=== PATIENT | female | born 1995 | race Native Hawaiian/Other Pacific Islander ===

== ENCOUNTER 2017-04-27 23:09 | Emergency (ER) | payer MEDICAID ==
[2017-04-28] MEDS ORDERED: METOCLOPRAMIDE HCL INJ/PF 10 MG/2 ML SDV IV ONE (01:18)
[2017-04-28] MEDS ORDERED: NORMAL SALINE 1000 ML 1,000 ML IV ONE (01:18)
--- NOTE | 2017-04-28 01:21 | ER Document Report ---
ED General - General Chief Complaint: Nausea/Vomiting Stated Complaint: FEVER Time Seen by Provider: 04/28/17 01:10 Notes: Patient is a 21-year-old female presents with complaint of some cramping abdominal pain with some vomiting. No diarrhea. She is 10 weeks . She has had an ultrasound confirming intrauterine . She denies any complications with her thus far. She is followed by [facility]. She also has had some dysuria. No abnormal vaginal discharge. No vaginal bleeding. She has had subjective fevers but has not checked her temp. Symptoms have been ongoing for 3 days. No other complaints at this time. TRAVEL OUTSIDE OF THE [place] IN LAST 30 DAYS: No - Related Data Allergies/Adverse Reactions: No Known Allergies Allergy (Verified 04/28/17 00:41) Past Medical History - Social History Smoking Status: Never Smoker Chew tobacco use (# tins/day): No Frequency of alcohol use: None Drug Abuse: None Family History: Reviewed & Not Pertinent Patient has suicidal ideation: No Patient has homicidal ideation: No Renal/ Medical History: Denies: Hx Peritoneal Dialysis - Immunizations Hx Diphtheria, Pertussis, Tetanus Vaccination: Yes Review of Systems - Review of Systems Notes: My Normal Review Basic REVIEW OF SYSTEMS: CONSTITUTIONAL : Denies fever, chills, or sweats. Denies recent illness. EENT: Denies eye, ear, throat, or mouth pain or symptoms. Denies nasal or sinus congestion. RESPIRATORY: Denies cough, cold, or chest congestion. Denies shortness of breath, difficulty breathing, or wheezing. GASTROINTESTINAL: Lower abdominal cramping. Some vomiting. GENITOURINARY: Some dysuria FEMALE GENITOURINARY: Denies vaginal bleeding, abnormal or irregular periods. LMP: 10 Weeks MUSCULOSKELETAL: Denies neck or back pain or joint pain or swelling. SKIN: Denies rash or skin lesions. NEUROLOGICAL: Denies altered mental status or loss of consciousness. Denies headache. Denies weakness or paralysis or loss of use of either side. Denies problems with gait or speech. Denies sensory or motor loss. ALL OTHER SYSTEMS REVIEWED AND NEGATIVE. Physical Exam - Vital signs Vitals: Temp Pulse Resp BP Pulse Ox 98.4 F 99 18 141/95 H 100 04/27/17 23:15 04/27/17 23:15 04/27/17 23:15 04/27/17 23:15 02/12/18 23:15 - Notes Notes: General Appearance: Well nourished, alert, cooperative, no acute distress, no obvious discomfort. Well-appearing. Vitals: reviewed, See vital signs table. Head: no swelling or tenderness to the head Eyes: PERRL, EOMI, Conjuctiva clear Mouth: No decreasd moisture Lungs: No wheezing, No rales, No rhonci, No accessory muscle use, good air exchange bilaterally. Heart: Normal rate, Regular rythm, No murmur, no rub Abdomen: Normal BS, soft, No rigidity, No reproducible abdominal tenderness to palpation, No guarding, no rebound, Extremities: strength 5/5 in all extremities, good pulses in all extremities, no swelling or tenderness in the extremities, no edema. Skin: warm, dry, appropriate color, no rash Neuro: speech clear, oriented x 3, normal affect, responds appropriately to questions. Course - Vital Signs Vital signs: Temp Pulse Resp BP Pulse Ox 98.4 F 99 18 141/95 H 100 04/27/17 23:15 04/27/17 23:15 04/27/17 23:15 04/27/17 23:15 04/27/17 23:15 - Laboratory Result Diagrams: 04/28/17 01:45 04/28/17 01:45 Laboratory results interpreted by me: 04/28/17 04/28/17 01:45 01:45 WBC 13.5 H RDW 14.3 H Absolute Neutrophils 9.4 H Urine Nitrite POSITIVE H Ur Leukocyte Esterase LARGE H Discharge - Discharge Clinical Impression: UTI (urinary tract infection) Qualifiers: Urinary tract infection type: site unspecified Hematuria presence: without hematuria Qualified Code(s): N39.0 - Urinary tract infection, site not specified Qualifiers: Weeks of gestation: unspecified Qualified Code(s): Z34.90 - Encounter for supervision of normal , unspecified, unspecified trimester Vomiting Qualifiers: Vomiting type: unspecified Vomiting Intractability: unspecified Nausea presence : unspecified Qualified Code(s): R11.10 - Vomiting, unspecified Condition: Good Disposition: HOME, SELF-CARE Additional Instructions: Please take the antibiotics as prescribed. please take the Reglan as needed for vomiting. Please follow up with your OB doctor in 3-4 days for reevaluation. Please return to the ER immediately if you develop back pain, fevers, intractable vomiting, or feel unwell. Prescriptions: Cephalexin Monohydrate [Keflex 500 mg Capsule] 500 mg PO BID #14 capsule Metoclopramide HCl [Reglan 10 mg Tablet] 1 tab PO ASDIR PRN #25 tablet PRN Reason: Referrals: FERNANDO OLIVERA, PAVANC [Primary Care Provider] - 05/01/17
[2017-04-28 01:56] LABS: ABSOLUTE BASOPHILS # (AUTO) 0.1 10^3/uL (0.0-0.2); ABSOLUTE EOSINOPHILS # (AUTO) 0.2 10^3/uL (0.0-0.6); ABSOLUTE MONOCYTES (AUTO) 0.9 10^3/uL (0.1-1.4); ABSOLUTE NEUT (AUTO) 9.4 10^3/uL (1.7-8.2); BASOPHILS % (AUTO) 0.4 % (0-2); EOSINOPHILS % (AUTO) 1.2 % (0-6); HEMATOCRIT 40.1 % (36.0-47.0); HEMOGLOBIN 13.2 g/dL (12.0-15.5); MEAN CORPUSCULAR HEMOGLOBIN 27.3 pg (27.0-33.4); MEAN CORPUSCULAR VOLUME 83 fl (80-97); MONOCYTES % (AUTO) 6.6 % (3-13); PLATELET COUNT 319 10^3/uL (150-450); RED BLOOD COUNT 4.85 10^6/uL (3.72-5.28); RED CELL DISTRIBUTION WIDTH 14.3 % (11.5-14.0); SEGMENTED NEUTROPHILS % (AUTO) 69.8 % (42-78); TOTAL CELLS COUNTED % (AUTO) 100 %; WHITE BLOOD COUNT 13.5 10^3/uL (4.0-10.5)
[2017-04-28 02:03] LABS: APPEARANCE,URINE SLIGHTLY-CLOUDY; BILIRUBIN,URINE NEGATIVE (NEGATIVE); COLOR,URINE YELLOW; GLUCOSE, URINE NEGATIVE (NEGATIVE); KETONES,URINE NEGATIVE (NEGATIVE); LEUKOCYTE ESTERASE,URINE LARGE (NEGATIVE); NITRITE,URINE POSITIVE (NEGATIVE); PROTEIN,URINE NEGATIVE (NEGATIVE); URINE SPECIFIC GRAVITY 1.006; UROBILINOGEN,URINE NEGATIVE mg/dL (<2.0)
[2017-04-28 02:12] LABS: ANION GAP 10 (5-19); BLOOD UREA NITROGEN 13 mg/dL (7-20); CALCIUM 9.6 mg/dL (8.4-10.2); CARBON DIOXIDE 24 mmol/L (22-30); CHLORIDE 103 mmol/L (98-107); GLUCOSE 82 mg/dL (75-110); POTASSIUM 4.1 mmol/L (3.6-5.0); SODIUM 137.3 mmol/L (137-145)
[2017-04-28] MEDS ORDERED: CEFTRIAXONE INJ 1000 MG VIAL IV ONE (02:41)
[2017-04-28] MEDS ORDERED: LIDOCAINE 1% INJ-PF (10 MG/ML) 30 ML SDV ONE (03:06)
[2017-04-28 03:34] VITALS: BP 114/75
== END 2017-04-28 03:33 | disposition home or self-care (01) ==
LOC: ER 23:09
DX: O23.40 Unspecified infection of urinary tract in pregnancy, unspecified trimester (principal); R11.2 Nausea with vomiting, unspecified; R50.9 Fever, unspecified; R10.9 Unspecified abdominal pain; R30.0 Dysuria; Z3A.00 Weeks of gestation of pregnancy not specified
CPT/HCPCS: 99283; 96361; 96374; 96375; 36415; 87086; 83735; 85025; 87088; 80048; 81001; 87186; J2765; J0696; J7030

== ENCOUNTER 2017-09-23 14:56 | Outpatient (CLI) | payer MEDICAID ==
[2017-09-23 16:21] LABS: APPEARANCE,URINE SLIGHTLY-CLOUDY; BILIRUBIN,URINE NEGATIVE (NEGATIVE); COLOR,URINE YELLOW; GLUCOSE, URINE NEGATIVE (NEGATIVE); KETONES,URINE NEGATIVE (NEGATIVE); LEUKOCYTE ESTERASE,URINE MODERATE (NEGATIVE); NITRITE,URINE NEGATIVE (NEGATIVE); PROTEIN,URINE NEGATIVE (NEGATIVE); URINE SPECIFIC GRAVITY 1.008; UROBILINOGEN,URINE NEGATIVE mg/dL (<2.0)
[2017-09-23 16:34] LABS: URINE AMPHETAMINES SCREEN NEGATIVE; URINE BARBITURATES SCREEN NEGATIVE; URINE BENZODIAZEPINES SCREEN NEGATIVE; URINE COCAINE SCREEN NEGATIVE; URINE MARIJUANA (THC) SCREEN NEGATIVE; URINE METHADONE SCREEN NEGATIVE; URINE PHENCYCLIDINE SCREEN NEGATIVE
[2017-09-23 16:59] LABS: ABSOLUTE BASOPHILS # (AUTO) 0.1 10^3/uL (0.0-0.2); ABSOLUTE EOSINOPHILS # (AUTO) 0.1 10^3/uL (0.0-0.6); ABSOLUTE LYMPHOCYTES (AUTO) 1.9 10^3/uL (0.5-4.7); ABSOLUTE MONOCYTES (AUTO) 0.8 10^3/uL (0.1-1.4); ABSOLUTE NEUT (AUTO) 9.5 10^3/uL (1.7-8.2); BASOPHILS % (AUTO) 0.7 % (0-2); EOSINOPHILS % (AUTO) 0.9 % (0-6); HEMATOCRIT 35.3 % (36.0-47.0); HEMOGLOBIN 11.3 g/dL (12.0-15.5); LYMPHOCYTES % (AUTO) 15.6 % (13-45); MEAN CORPUSCULAR HEMOGLOBIN 25.4 pg (27.0-33.4); MEAN CORPUSCULAR HGB CONC 32.1 g/dL (32.0-36.0); MEAN CORPUSCULAR VOLUME 79 fl (80-97); MONOCYTES % (AUTO) 6.1 % (3-13); PLATELET COUNT 179 10^3/uL (150-450); RED BLOOD COUNT 4.45 10^6/uL (3.72-5.28); RED CELL DISTRIBUTION WIDTH 13.1 % (11.5-14.0); SEGMENTED NEUTROPHILS % (AUTO) 76.7 % (42-78); TOTAL CELLS COUNTED % (AUTO) 100 %; WHITE BLOOD COUNT 12.4 10^3/uL (4.0-10.5)
[2017-09-23] MEDS ORDERED: LIDOCAINE 1% INJ-PF (10 MG/ML) 30 ML SDV INJ ONE (17:16)
[2017-09-23] MEDS ORDERED: CEFTRIAXONE INJ 1000 MG VIAL IM ONE (17:16)
[2017-09-23] MEDS ORDERED: CEFTRIAXONE INJ 1000 MG VIAL ONE (17:19)
[2017-09-23] MEDS ORDERED: LIDOCAINE 1% INJ-PF (10 MG/ML) 30 ML SDV ONE (17:19)
== END 2017-09-23 17:31 | disposition home or self-care (01) ==
LOC: LC 14:56
PROVIDERS: ATTEND Obstetrics & Gynecology
PROC: 4A1HXCZ Monitoring of Products of Conception, Cardiac Rate, External Approach (ICD-10-PCS; principal; 2017-09-23)
DX: O47.03 False labor before 37 completed weeks of gestation, third trimester (principal); Z3A.31 31 weeks gestation of pregnancy
CPT/HCPCS: 59899; 36415; 87086; 85025; 81001; 80307; J3490; J0696

== ENCOUNTER 2017-10-04 06:23 | Outpatient (CLI) | payer MEDICAID ==
[2017-10-04 07:12] LABS: APPEARANCE,URINE CLEAR; BILIRUBIN,URINE NEGATIVE (NEGATIVE); COLOR,URINE LIGHT YELLOW; GLUCOSE, URINE NEGATIVE (NEGATIVE)
[2017-10-04 07:13] LABS: KETONES,URINE 25 mg/dL (NEGATIVE); LEUKOCYTE ESTERASE,URINE TRACE (NEGATIVE); NITRITE,URINE NEGATIVE (NEGATIVE); PROTEIN,URINE 30 mg/dL (NEGATIVE); URINE SPECIFIC GRAVITY 1.016; UROBILINOGEN,URINE NEGATIVE mg/dL (<2.0)
[2017-10-04 07:38] LABS: URINE AMPHETAMINES SCREEN NEGATIVE; URINE BARBITURATES SCREEN NEGATIVE; URINE BENZODIAZEPINES SCREEN NEGATIVE; URINE COCAINE SCREEN NEGATIVE; URINE MARIJUANA (THC) SCREEN NEGATIVE; URINE METHADONE SCREEN NEGATIVE; URINE PHENCYCLIDINE SCREEN NEGATIVE
[2017-10-04] MEDS ORDERED: RINGERS SOLUTION,LACTATED 1,000 ML IV PRN (08:39)
== END 2017-10-04 11:22 | disposition home or self-care (01) ==
LOC: LC 06:23
PROVIDERS: ATTEND Obstetrics & Gynecology
PROC: 4A1HXCZ Monitoring of Products of Conception, Cardiac Rate, External Approach (ICD-10-PCS; principal; 2017-10-04)
DX: O36.8130 Decreased fetal movements, third trimester, not applicable or unspecified (principal); O99.613 Diseases of the digestive system complicating pregnancy, third trimester; K52.9 Noninfective gastroenteritis and colitis, unspecified; O09.33 Supervision of pregnancy with insufficient antenatal care, third trimester; Z3A.33 33 weeks gestation of pregnancy
CPT/HCPCS: 59025; 80307; 81001

== ENCOUNTER 2017-11-05 15:13 | Outpatient (CLI) | payer MEDICAID ==
--- NOTE | 2017-11-05 15:23 | Non Stress Test Report ---
Non Stress Test Datetime Report Generated by CPN: 11/05/2017 15:23 DEMOGRAPHIC Test Number: 1 EGA NST: 33.3 INDICATION Indication for Study: Decreased Movement; Ordered by Provider; Other Indication for Study (NST) Other: s/p fall MONITORING Monitor Explained: Monitor Explained; Test Explained; Patient Verbalized Understanding Monitor Explained: Monitor Explained; Test Explained; Patient Verbalized Understanding Time on Monitor: 10/04/2017 10:28 Time off Monitor: 10/04/2017 11:11 NST Duration: 43 NST INTERVENTIONS NST Interventions: PO Hydration; Reposition Patient NST Interventions: None Physician Notified NST: Richard BABY A: [id number] BABY A Movement : Present Contraction Frequency : Irreg FHR Baseline : 140 Accelerations : 15X15 Decelerations : None Variability : Moderate 6-25bpm NST Review: Meets Criteria for Reactive NST NST Review and Verified By : Shaina CRAVEN Results: Reactive NST REPORT Report Trigger: Send Report
[2017-11-05 15:51] LABS: APPEARANCE,URINE CLEAR; BILIRUBIN,URINE NEGATIVE (NEGATIVE); COLOR,URINE YELLOW; GLUCOSE, URINE NEGATIVE (NEGATIVE); KETONES,URINE NEGATIVE (NEGATIVE); LEUKOCYTE ESTERASE,URINE NEGATIVE (NEGATIVE); NITRITE,URINE NEGATIVE (NEGATIVE); PROTEIN,URINE NEGATIVE (NEGATIVE); URINE SPECIFIC GRAVITY 1.014; UROBILINOGEN,URINE NEGATIVE mg/dL (<2.0)
[2017-11-05 16:09] LABS: URINE AMPHETAMINES SCREEN NEGATIVE; URINE BARBITURATES SCREEN NEGATIVE; URINE BENZODIAZEPINES SCREEN NEGATIVE; URINE COCAINE SCREEN NEGATIVE; URINE MARIJUANA (THC) SCREEN NEGATIVE; URINE METHADONE SCREEN NEGATIVE; URINE PHENCYCLIDINE SCREEN NEGATIVE
[2017-11-05 17:14] LABS: BACTERIA (WET MOUNT) 4+ BACTERIA SEEN; EPITHELIALS (WET MOUNT) 3+ EPITHELIALS SEEN; T.VAGINALIS (WET MOUNT) NO TRICHOMONAS SEEN; WBCS (WET MOUNT) 1+ WBCS SEEN; YEAST (WET MOUNT) NO YEAST SEEN
== END 2017-11-05 17:44 | disposition home or self-care (01) ==
LOC: LC 15:13
PROVIDERS: ATTEND Obstetrics & Gynecology
PROC: 4A1HXCZ Monitoring of Products of Conception, Cardiac Rate, External Approach (ICD-10-PCS; principal; 2017-11-05)
DX: O36.8130 Decreased fetal movements, third trimester, not applicable or unspecified (principal); Z3A.38 38 weeks gestation of pregnancy
CPT/HCPCS: 59025; 80307; 81005; 84112; 87210

== ENCOUNTER 2017-11-06 22:43 | Inpatient (IN) | payer MEDICAID ==
[2017-11-06 23:12] LABS: APPEARANCE,URINE CLEAR; BILIRUBIN,URINE NEGATIVE (NEGATIVE); COLOR,URINE YELLOW; GLUCOSE, URINE NEGATIVE (NEGATIVE); KETONES,URINE NEGATIVE (NEGATIVE); LEUKOCYTE ESTERASE,URINE NEGATIVE (NEGATIVE); NITRITE,URINE NEGATIVE (NEGATIVE); PROTEIN,URINE NEGATIVE (NEGATIVE); URINE SPECIFIC GRAVITY 1.009; UROBILINOGEN,URINE NEGATIVE mg/dL (<2.0)
[2017-11-06] MEDS ORDERED: MISOPROSTOL 0.2 MG TABLET ONE (23:14)
[2017-11-06] MEDS ORDERED: LIDOCAINE 1% INJ-PF (10 MG/ML) 30 ML SDV ONE (23:15)
[2017-11-06] MEDS ORDERED: OXYTOCIN/NORMAL SALINE 20 UNIT/1,000 ML RTUINJ ONE (23:15)
[2017-11-06 23:28] LABS: URINE AMPHETAMINES SCREEN NEGATIVE; URINE COCAINE SCREEN NEGATIVE; URINE MARIJUANA (THC) SCREEN NEGATIVE; URINE METHADONE SCREEN NEGATIVE; URINE PHENCYCLIDINE SCREEN NEGATIVE
[2017-11-06 23:40] LABS: ABSOLUTE BASOPHILS # (AUTO) 0.1 10^3/uL (0.0-0.2); ABSOLUTE EOSINOPHILS # (AUTO) 0.1 10^3/uL (0.0-0.6); ABSOLUTE LYMPHOCYTES (AUTO) 3.1 10^3/uL (0.5-4.7); ABSOLUTE MONOCYTES (AUTO) 0.7 10^3/uL (0.1-1.4); ABSOLUTE NEUT (AUTO) 9.4 10^3/uL (1.7-8.2); BASOPHILS % (AUTO) 0.6 % (0-2); EOSINOPHILS % (AUTO) 0.7 % (0-6); HEMATOCRIT 35.4 % (36.0-47.0); HEMOGLOBIN 11.3 g/dL (12.0-15.5); LYMPHOCYTES % (AUTO) 23.1 % (13-45); MEAN CORPUSCULAR HGB CONC 31.9 g/dL (32.0-36.0); MEAN CORPUSCULAR VOLUME 78 fl (80-97); MONOCYTES % (AUTO) 5.3 % (3-13); PLATELET COUNT 205 10^3/uL (150-450); RED BLOOD COUNT 4.52 10^6/uL (3.72-5.28); SEGMENTED NEUTROPHILS % (AUTO) 70.3 % (42-78); TOTAL CELLS COUNTED % (AUTO) 100 %; WHITE BLOOD COUNT 13.3 10^3/uL (4.0-10.5)
[2017-11-06 23:42] LABS: URINE BENZODIAZEPINES SCREEN NEGATIVE
--- NOTE | 2017-11-06 23:47 | Admission Physical ---
Datetime Report Generated by CPN: 11/06/2017 23:47 CURRENT ADMISSION Chief Complaint: Uterine Contractions Indication for Induction: Not Applicable Admit Impression : Term, Intrauterine Admit Plan: Initiate Labor Protocol ALLERGIES Medication Allergies: No Known Allergies (11/05/2017) Latex: No Latex Allergies OBSTETRICAL HISTORY EDC: 11/19/2017 00:00 : 1 Para: 0 Gestational Diabetes: No Rh Sensitization: No Incompetent Cervix: No JOSE E: No Infertility: No ART Treatment: No Uterine Anomaly: No IUGR: No Hx Previous C/S: No Macrosomia: No Hx Loss/Stillborn: No PIH: No Hx : No Placenta Previa/Abruption: No Depression/PP Depression: No PTL/PROM: No Post Hemorrhage: No Obstetrical History Comments: g1 - current - frequent utis SEE RECORDS Alcohol: No Marijuana : No Cocaine: No Other Illicit Drugs: No Cigarettes: Never Smoker. 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 Heart Disease: No Hosp/Surgery: No Autoimmune Disorder: No Anesthetic Complications: No Kidney Disease: No Abnormal Pap Smear: No Neuro/Epilepsy: No Psychiatric Disorders: No Other Medical Diseases: No Hepatitis/Liver Disease: No Significant Family History: No Varicosities/Phlebitis: No Trauma/Violence : No Thyroid Dysfunction: No INFECTIOUS HISTORY Gonorrhea: No Genital Herpes: No Chlamydia: No Tuberculosis: No Syphilis: No Hepatitis: No HIV/AIDS Exposure: No Rash or Viral Illness: No HPV: No PHYSICAL EXAM General: Normal HEENT: Normal Neurologic: Normal Thyroid: Normal Heart: Normal Lungs: Normal Breast: Deferred Back: Normal Abdomen: Normal Genitourinary Exam: Normal Extremities: Normal DTRs: Normal Pelvic Type: Adequate FETUS A EGA: 38.1 PLANS FOR LABOR AND DELIVERY Labor and Delivery: None Pain Management: Natural Feeding Preference: Breast Benefit of Breast Feed Discussed: Yes Circumcision: Yes INFORMED CONSENT Signature: with User ID: [email or web address]
[2017-11-07] MEDS ORDERED: DIPH/PERTUSS(ACELL)/TETANUS VAC/PF 0.5 ML SYR (>=10YO) IM PRN (00:52)
[2017-11-07] MEDS ORDERED: PROMETHAZINE HCL 25 MG SUPP.RECT PR PRN (00:52)
[2017-11-07] MEDS ORDERED: ACETAMINOPHEN WITH CODEINE #3 TABLET PO PRN (00:52)
[2017-11-07] MEDS ORDERED: PROMETHAZINE HCL 25 MG TABLET PO PRN (00:52)
[2017-11-07] MEDS ORDERED: PROMETHAZINE HCL INJ 25 MG/1 ML VIAL IV PRN (00:52)
[2017-11-07] MEDS ORDERED: MAGNESIUM HYDROXIDE SUSP 30 ML UDCUP PO PRN (00:52)
[2017-11-07] MEDS ORDERED: DIPHENHYDRAMINE HCL 25 MG CAPSULE PO PRN (00:52)
[2017-11-07] MEDS ORDERED: MEASLES,MUMPS&RUBELLA VACC/PF 0.5 ML VIAL SUBCUT PRN (00:52)
[2017-11-07] MEDS ORDERED: GLYCERIN/WITCH HAZEL LEAF 1 EACH MED..PAD TP PRN (00:52)
[2017-11-07] MEDS ORDERED: ACETAMINOPHEN 650 MG SUPP.RECT PR PRN (00:52)
[2017-11-07] MEDS ORDERED: PSEUDOEPHEDRINE HCL 30 MG TABLET PO PRN (00:52)
[2017-11-07] MEDS ORDERED: BENZOCAINE/MENTHOL AEROSOL SPRAY 56 ML TOP PRN (00:52)
[2017-11-07] MEDS ORDERED: NA PHOS,M-B/NA PHOS,DI-BA (ADULT) 133 ML ENEMA PR PRN (00:52)
[2017-11-07] MEDS ORDERED: ZOLPIDEM TARTRATE 5 MG TABLET PO PRN (00:52)
[2017-11-07] MEDS ORDERED: DIBUCAINE 1% OINTMENT 28 GM TP PRN (00:52)
[2017-11-07] MEDS ORDERED: OXYTOCIN/NORMAL SALINE 20 UNIT/1,000 ML RTUINJ IV PRN (00:52)
--- NOTE | 2017-11-07 00:54 | PDOC DELIVERY SUMMARY ---
Delivery Summary - Maternal Ruptured Membranes: SROM Fluids: Clear, Meconium Stained - Delivery Presentation: Vertex Uterine Contraction Monitoring: External Support Person Present: Yes Placenta: Within Normal Limits Nuchal Cord: No
[2017-11-07 01:01] LABS: URINE BARBITURATES SCREEN NEGATIVE
[2017-11-07] MEDS ORDERED: IBUPROFEN 800 MG TABLET ONE (03:06)
--- NOTE | 2017-11-07 03:51 | Delivery Summary ---
Del Sum A-C Datetime Report Generated by CPN: 11/07/2017 03:51 DELIVERY PERSONNEL DELIVERY PERSONNEL: [id number] Delivery Doctor:: Jhon Negrete MD Labor and Delivery Nurse:: Mikki Oliveros RN Nursery Nurse:: Edel Layne RN Embedded Systems Designer/RAIL CAR OPERATOR: Daja Ross, ST MATERNAL INFORMATION Delivery Anesthesia: None Medications After Delivery: Pitocin Bolus-Please Comment Meds After Delivery Comment: pitocin bolus 10 units in 1000 ml NS Maternal Complications: None LABOR SUMMARY EDC: 11/19/2017 00:00 No. Babies in Womb: 1 Attempted: No Labor Anesthesia: None LABOR INFORMATION Reason for Induction: Not Applicable Onset of Labor: 11/06/2017 18:00 Complete Dilatation: 11/06/2017 23:34 Oxytocin: N/A Steroids Given: None Reason Steroids Not Administered: Not Applicable MEMBRANES Membranes Rupture Method: Spontaneous Rupture of Membranes: 11/06/2017 23:33 Length of Rupture (hr): 1.17 Amniotic Fluid Color: Light Meconium Amniotic Fluid Amount: Moderate Amniotic Fluid Odor: Normal STAGES OF LABOR Stage 1 hr: 5 Stage 1 min: 34 Stage 2 hr: 1 Stage 2 min: 9 Stage 3 hr: 0 Stage 3 min: 2 Total Time in Labor hr: 6 Total Time in Labor min: 45 VAGINAL DELIVERY Episiotomy: None Laceration #1: Vaginal Laceration Extension #1: N/A Laceration Repair: No Laceration Repair Note: repair not needed Sponge Count Correct: N/A Sharps Count Correct: N/A BABY A INFORMATION Infant Delivery Date/Time: 11/07/2017 00:43 Method of Delivery: Vaginal Born in Route : No : N/A Forceps: N/A Vacuum Extraction: N/A Shoulder Dystocia : No PRESENTATION/POSITION BABY A Presentation: Cephalic Cephalic Presentation: Vertex Vertex Position: Left Occipital Anterior Breech Presentation: N/A PLACENTA INFORMATION BABY A Placenta Delivery Time : 11/07/2017 00:45 Placenta Method of Delivery: Spontaneous Placenta Status: Delivered SCORES BABY A Heart Rate 1 min: >100 bpm Resp Effort 1 min: Good Cry Reflex Irritability 1 min: Cough or Sneeze or Pulls Away Muscle Tone 1 min: Active Motion Color 1 min: Blue/Pale Resuscitation Effort 1 min: Tactile Stimulation SCORE 1 MIN: 8 Heart Rate 5 min: >100 bpm Resp Effort 5 min: Good Cry Reflex Irritability 5 min: Cough or Sneeze or Pulls Away Muscle Tone 5 min: Active Motion Color 5 min: Body [place], Extremities Blue SCORE 5 MIN: 9 INFORMATION BABY A Gestational Age at Delivery: 38.2 Gestational Status: Early Term- 37- 38.6 Weeks Infant Outcome : Liveborn Condition : Stable Sex: Male IDENTIFICATION BABY A Infant Verification Date/Time: 11/07/2017 02:00 ID Band Number: [id number] Mother's Name Verified: Yes RN Verifying : Damian OliverosLeatha RAND Additional Verifying Personnel: Luis Martinez CNA WEIGHT/LENGTH BABY A Birthweight (gm): 2860 Weight (lb): 6 Weight (oz): 5 Infant Length (in): 20.50 Length (cm): 52.07 CORD INFORMATION BABY A No. Cord Vessels: 3 Nuchal Cord : N/A Cord Blood Taken: Yes-For Eval (Mom's Blood Type - or O+) Suction: Mouth; Nose ASSESSMENT BABY A Complications: None Physical Findings at Delivery: Within Normal Limits Skin to Skin: Yes Transferred To: [facility] BABY B INFORMATION : N/A SIGNATURES Signature: with User ID: [email or web address]
[2017-11-07] MEDS: IBUPROFEN 800 MG TABLET PO SCH ×3 (06:07→22:40)
[2017-11-07] MEDS: PRENATAL VITAMIN W DHA CAPSULE PO SCH (09:52)
[2017-11-07] MEDS: FERROUS SULFATE 325 MG TABLET PO SCH ×2 (09:52→17:55)
[2017-11-07] MEDS: FAMOTIDINE 20 MG TABLET PO SCH ×2 (09:52→22:39)
[2017-11-07] MEDS: DOCUSATE SODIUM 100 MG CAPSULE PO SCH ×2 (09:52→17:55)
[2017-11-07] MEDS: SENNOSIDES/DOCUSATE 8.6-50 MG 1 EACH TABLET PO SCH (09:52)
--- NOTE | 2017-11-07 10:54 | PDOC PROGRESS REPORT ---
Subjective-OB Progress Note for:: 11/07/17 Subjective: feeling fine except perineal tenderness Physical Exam (OB) Vital Signs: Temp Pulse Resp BP Pulse Ox 98.9 F 95 14 120/84 100 11/07/17 07:22 11/07/17 07:22 11/07/17 07:22 11/07/17 07:22 11/07/17 07:22 - Lochia Lochia Amount: Small 10-25 ml Lochia Color: Rubra/Red - Abdomen Description: Soft Hernia Present: No Fundal Description: Firm, Midline Fundal Height: u/u - u/2 - Abdominal Tenderness: Nontender - Genitourinary Female External exam: Bruising Genitourinary Note: asked by RN to assess labial edema. no hematoma noted, however labia very edematous Objective-Diagnostic Laboratory: 11/06/17 23:20 11/06/17 11/06/17 11/06/17 23:00 23:20 23:20 WBC 13.3 H RBC 4.52 Hgb 11.3 L Hct 35.4 L MCV 78 L MCH 25.0 L MCHC 31.9 L RDW 16.0 H Plt Count 205 Seg Neutrophils % 70.3 Lymphocytes % 23.1 Monocytes % 5.3 Eosinophils % 0.7 Basophils % 0.6 Absolute Neutrophils 9.4 H Absolute Lymphocytes 3.1 Absolute Monocytes 0.7 Absolute Eosinophils 0.1 Absolute Basophils 0.1 Urine Color YELLOW Urine Appearance CLEAR Urine pH 6.0 Ur Specific [place] 1.009 Urine Protein NEGATIVE Urine Glucose (UA) NEGATIVE Urine Ketones NEGATIVE Urine Blood NEGATIVE Urine Nitrite NEGATIVE Ur Leukocyte Esterase NEGATIVE Blood Type A POSITIVE Antibody Screen NEGATIVE Assessment and Plan(PN) Plan:: keep bragg in for next 24 hours, ice packs, remove bragg tomorrow and reassess - Time Spent with Patient Time with patient: Less than 15 minutes - Disposition Anticipated Discharge: Home Within: within 48 hours
[2017-11-08] MEDS: IBUPROFEN 800 MG TABLET PO SCH ×3 (06:31→22:30)
[2017-11-08 07:30] LABS: HEMATOCRIT 27.8 % (36.0-47.0); MEAN CORPUSCULAR HEMOGLOBIN 25.7 pg (27.0-33.4); MEAN CORPUSCULAR HGB CONC 33.1 g/dL (32.0-36.0); MEAN CORPUSCULAR VOLUME 78 fl (80-97); PLATELET COUNT 134 10^3/uL (150-450); RED BLOOD COUNT 3.58 10^6/uL (3.72-5.28); RED CELL DISTRIBUTION WIDTH 15.8 % (11.5-14.0); WHITE BLOOD COUNT 13.4 10^3/uL (4.0-10.5)
[2017-11-08 07:47] LABS: HEMOGLOBIN 9.2 g/dL (12.0-15.5)
[2017-11-08] MEDS: DOCUSATE SODIUM 100 MG CAPSULE PO SCH ×2 (10:41→18:40)
[2017-11-08] MEDS: FAMOTIDINE 20 MG TABLET PO SCH ×2 (10:41→22:29)
[2017-11-08] MEDS: FERROUS SULFATE 325 MG TABLET PO SCH ×2 (10:41→18:40)
[2017-11-08] MEDS: SENNOSIDES/DOCUSATE 8.6-50 MG 1 EACH TABLET PO SCH (10:41)
[2017-11-08] MEDS: PRENATAL VITAMIN W DHA CAPSULE PO SCH (10:41)
--- NOTE | 2017-11-08 11:35 | PDOC PROGRESS REPORT ---
Subjective-OB Progress Note for:: 11/08/17 Subjective: reports bleeding slowing, pain controlled with current meds. denies needs Physical Exam (OB) Vital Signs: Temp Pulse Resp BP Pulse Ox 97.9 F 95 14 122/77 100 11/08/17 08:14 11/08/17 08:14 11/08/17 08:14 11/08/17 08:14 11/08/17 08:14 Intake & Output 11/07/17 11/08/17 11/09/17 06:59 06:59 06:59 Intake Total 450 Output Total 4575 Balance -4125 - Abdomen Description: Soft Hernia Present: No Fundal Description: Firm, Midline Fundal Height: u/u - u/2 - Abdominal Distension: No distension Tenderness: Nontender - Extremities Lower extremities: Samira's sign - neg Calf: Normal, Nontender Objective-Diagnostic Laboratory: 11/08/17 07:05 11/08/17 07:05 WBC 13.4 H RBC 3.58 L Hgb 9.2 L D Hct 27.8 L MCV 78 L MCH 25.7 L MCHC 33.1 RDW 15.8 H Plt Count 134 L Assessment and Plan(PN) - Assessment and Plan (1) Vaginal delivery Is this a current diagnosis for this admission?: Yes - Time Spent with Patient Time with patient: Less than 15 minutes - Disposition Anticipated Discharge: Home Within: within 24 hours
[2017-11-09] MEDS: IBUPROFEN 800 MG TABLET PO SCH (06:05)
[2017-11-09 08:44] VITALS: BP 119/77
[2017-11-09] MEDS: FAMOTIDINE 20 MG TABLET PO SCH (10:57)
[2017-11-09] MEDS: FERROUS SULFATE 325 MG TABLET PO SCH (10:57)
[2017-11-09] MEDS: PRENATAL VITAMIN W DHA CAPSULE PO SCH (10:57)
[2017-11-09] MEDS: SENNOSIDES/DOCUSATE 8.6-50 MG 1 EACH TABLET PO SCH (10:57)
[2017-11-09] MEDS: DOCUSATE SODIUM 100 MG CAPSULE PO SCH (10:58)
--- NOTE | 2017-11-09 11:22 | PDOC PROGRESS REPORT ---
Subjective-OB Progress Note for:: 11/09/17 Subjective: PP Day #2 , doing well, no complaints, states now voiding without difficulty since bragg cath was removed Physical Exam (OB) Vital Signs: Temp Pulse Resp BP Pulse Ox 97.4 F 85 14 119/77 100 11/09/17 08:53 11/09/17 08:53 11/09/17 08:53 11/09/17 07:45 11/09/17 08:53 Intake & Output 11/08/17 11/09/17 11/10/17 06:59 06:59 06:59 Intake Total 450 600 Output Total 4575 Balance -4125 600 - General General Appearance: Appears well, Alert In distress: None - PIH/Pre-Eclampsia DTR's: 2 + Clonus: Negative Headache: Absent Epigastric Pain: No Visual Changes: No - Lochia Lochia Amount: Small 10-25 ml Lochia Color: Rubra/Red - Abdomen Description: Soft, Round Hernia Present: No Fundal Description: Firm, Midline Fundal Height: u/u - u/2 - Respiratory Respiratory Status: No respiratory distress - Genitourinary Genitourinary Note: voiding - Extremities Upper extremity: Normal inspection Lower extremities: Normal inspection - Neurological Cognition: Normal Orientation: AAOx4 - Psychological Associated symptoms: Normal affect, Normal mood Objective-Diagnostic Laboratory: 11/08/17 07:05 Assessment and Plan(PN) - Assessment and Plan (1) Anemia, Is this a current diagnosis for this admission?: Yes (2) Vaginal delivery Is this a current diagnosis for this admission?: Yes - Time Spent with Patient Time with patient: Less than 15 minutes Medications reviewed and adjusted accordingly: Yes - Disposition Anticipated Discharge: Home Disposition: stable condition
--- NOTE | 2017-11-09 11:27 | PDOC DISCHARGE SUMMARY ---
Final Diagnosis Discharge Date: 11/09/17 - Final Diagnosis (1) Anemia, Is this a current diagnosis for this admission?: Yes (2) Vaginal delivery Is this a current diagnosis for this admission?: Yes Discharge Data - Discharge Medication Prescriptions: Ibuprofen [Motrin 800 mg Tablet] 800 mg PO Q8 PRN #48 tablet PRN Reason: Pain Scale Of 2 Home Medications: Pnv No.95/Ferrous Fum/Folic AC [ Vitamins Tablet] 1 tab PO DAILY Ibuprofen [Motrin 800 mg Tablet] 800 mg PO Q8 PRN #48 tablet 11/09/17 Reason(s) for Admission: Onset of Labor Procedures: NST Intrapartum Procedure(s): Spontaneous Vaginal Delivery - Diagnosis Test Laboratory: Temp Pulse Resp BP Pulse Ox 97.4 F 85 14 119/77 100 11/09/17 08:53 11/09/17 08:53 11/09/17 08:53 11/09/17 07:45 11/09/17 08:53 11/06/17 11/06/17 11/08/17 23:00 23:20 07:05 RBC 4.52 3.58 L Hgb 11.3 L 9.2 L D Hct 35.4 L 27.8 L Urine Opiates Screen NEGATIVE - Discharge information/Instructions Discharge Activity: Activity As Tolerated, No Lifting Over 10 Pounds, Pelvic Rest Discharge Diet: As Tolerated, Regular Disposition: HOME, SELF-CARE Follow up with: [facility] in: 3, Weeks
== END 2017-11-09 13:30 | disposition home or self-care (01) | DRG 775 ==
LOC: LC 22:43 → LR 23:08 → 2S 11-07 03:26
PROVIDERS: ADMIT Obstetrics & Gynecology Gynecology; ATTEND Obstetrics & Gynecology Gynecology
PROC: 4A1HXCZ Monitoring of Products of Conception, Cardiac Rate, External Approach (ICD-10-PCS; 2017-11-06)
PROC: 10E0XZZ Delivery of Products of Conception, External Approach (ICD-10-PCS; principal; 2017-11-07)
DX: O77.0 Labor and delivery complicated by meconium in amniotic fluid (principal); O90.81 Anemia of the puerperium; D64.9 Anemia, unspecified; Z3A.38 38 weeks gestation of pregnancy; Z37.0 Single live birth
CPT/HCPCS: 36415; 59025; 80307; 81005; 85025; 85027; 86592; 86850; 86900; 86901; 90715; J2590; J3490

== ENCOUNTER 2019-06-13 13:16 | Emergency (ER) | payer MEDICAID ==
[2019-06-13] MEDS ORDERED: NORMAL SALINE 1000 ML 1,000 ML IV ONE (13:29)
[2019-06-13] MEDS ORDERED: METOCLOPRAMIDE HCL INJ/PF 10 MG/2 ML SDV IV ONE (13:29)
--- NOTE | 2019-06-13 13:33 | ER Document Report ---
ED GI/ - General Chief Complaint: Nausea/Vomiting/Diarrhea Stated Complaint: VOMITING,PAINFUL URINATION Time Seen by Provider: 06/13/19 13:24 Primary Care Provider: NESHA GALEANO CNM [Primary Care Provider] - Follow up as needed Mode of Arrival: Ambulatory Information source: Patient Notes: Patient presents 6 weeks G2, P1. Patient states she is had dysuria and right flank pain for the past 2 weeks. Patient reports nausea vomiting diarrhea as well. Patient reports vomiting 5 times today and having diarrhea numerous episodes. Patient reports subjective fever. TRAVEL OUTSIDE OF THE [place] IN LAST 30 DAYS: No - HPI Patient complains to provider of: Diarrhea, Flank pain, Pelvic pain, Vomiting. No: Vaginal discharge Onset: Other - 2 weeks Timing/Duration: Persistent Quality of pain: Achy Location: Right flank, Suprapubic Vaginal bleeding (Compared to normal period): None Menstrual period history: Associated symptoms: Diarrhea, Dysuria, Fever, Nausea, Vomiting. denies: Urinary hesitancy, Urinary frequency, Urinary retention, Vaginal discharge Exacerbated by: Denies Relieved by: Denies Similar symptoms previously: Yes Recently seen / treated by doctor: No - Related Data Allergies/Adverse Reactions: No Known Allergies Allergy (Verified 11/05/17 15:24) Past Medical History - General Information source: Patient Last Menstrual Period: 6 weeks - Social History Smoking Status: Never Smoker Chew tobacco use (# tins/day): No Frequency of alcohol use: None Drug Abuse: None Occupation: None Lives with: Family Family History: Reviewed & Not Pertinent Patient has suicidal ideation: No Patient has homicidal ideation: No - Medical History Medical History: Negative Renal/ Medical History: Denies: Hx Peritoneal Dialysis Surgical Hx: Negative - Immunizations Hx Diphtheria, Pertussis, Tetanus Vaccination: Yes Review of Systems - Review of Systems Constitutional: Fever - Subjective EENT: No symptoms reported Cardiovascular: No symptoms reported. denies: Chest pain Respiratory: No symptoms reported. denies: Cough, Short of breath Gastrointestinal: Abdominal pain - With voiding, Diarrhea, Nausea, Vomiting Genitourinary: Dysuria, Flank pain Female Genitourinary: . denies: Vaginal discharge, Vaginal bleeding Musculoskeletal: Back pain - Right-sided Skin: No symptoms reported Hematologic/Lymphatic: No symptoms reported Neurological/Psychological: No symptoms reported Physical Exam - Vital signs Vitals: Temp Pulse Resp BP Pulse Ox 97.5 F 106 H 20 116/77 98 06/13/19 13:26 06/13/19 13:26 06/13/19 13:26 06/13/19 13:26 06/13/19 13:26 - General General appearance: Appears well, Alert In distress: None - HEENT Head: Normocephalic, Atraumatic Eyes: Normal Conjunctiva: Normal Nasal: Normal Mouth/Lips: Normal Mucous membranes: Normal Neck: Normal, Supple. No: Lymphadenopathy - Respiratory Respiratory status: No respiratory distress Chest status: Nontender Breath sounds: Normal. No: Rales, Rhonchi, Stridor, Wheezing Chest palpation: Normal - Cardiovascular Rhythm: Regular Heart sounds: S1 appreciated, S2 appreciated Murmur: No - Abdominal Inspection: Normal Distension: No distension Bowel sounds: Normal Tenderness: Tender - Suprapubic Organomegaly: No organomegaly - Back Back: CVA tenderness - R Sided - Extremities General upper extremity: Normal inspection, Normal ROM General lower extremity: Normal inspection, Normal ROM - Neurological Neuro grossly intact: Yes Cognition: Normal Orientation: AAOx4 [place] Coma Scale Eye Opening: Spontaneous [place] Coma Scale Verbal: Oriented [place] Coma Scale Motor: Obeys Commands Cyn Coma Scale Total: 15 - Psychological Associated symptoms: Normal affect, Normal mood - Skin Skin Temperature: Warm Skin Moisture: Dry Skin Color: Normal Course - Re-evaluation Re-evalutation: 06/13/19 16:26 Patient presents with dysuria and right flank pain for the past 2 weeks. Patient has minimal findings worrisome for UTI, urine will be cultured and patient will be placed on antibiotic at this time. Patient without any fever or leukocytosis. Patient does have some hydronephrosis noted on ultrasound without any obvious stone. Consulted with Dr. Patel who reviewed patient's diagnostic evaluation. Agrees with plan to treat UTI and to have her follow-up with her [facility] for recheck. Discussed worsening signs or symptoms that patient should return immediately for. Patient verbalized understanding is agreeable with discharge plan of care. - Vital Signs Vital signs: Temp Pulse Resp BP Pulse Ox 98.2 F 90 15 124/75 97 06/13/19 14:17 06/13/19 14:17 06/13/19 14:17 06/13/19 14:17 06/13/19 14:17 - Laboratory Result Diagrams: 06/13/19 13:55 06/13/19 13:55 Laboratory results interpreted by me: 06/13/19 06/13/19 06/13/19 13:35 13:55 13:55 RDW 14.2 H Sodium 134.1 L Beta HCG, Quant 563244.00 H Ur Leukocyte Esterase SMALL H Urine Ascorbic Acid 20 H Labs- Entire Visit 06/13/19 06/13/19 06/13/19 13:35 13:55 13:55 WBC 10.1 RBC 4.88 Hgb 13.7 Hct 40.5 MCV 83 MCH 28.2 MCHC 33.9 RDW 14.2 H Plt Count 280 Lymph % (Auto) 15.5 [place] % (Auto) 7.1 Eos % (Auto) 0.3 Baso % (Auto) 0.4 Absolute Neuts (auto) 7.7 Absolute Lymphs (auto) 1.6 Absolute Monos (auto) 0.7 Absolute Eos (auto) 0.0 Absolute Basos (auto) 0.0 Seg Neutrophils % 76.7 Sodium 134.1 L Potassium 4.0 Chloride 101 Carbon Dioxide 24 Anion Gap 9 BUN 8 Creatinine 0.57 Est GFR ( Amer) > 60 Est GFR (MDRD) Non-Af > 60 Glucose 93 Calcium 9.5 Total Bilirubin 0.3 Direct Bilirubin 0.0 Neonat Total Bilirubin Not Reportable Neonat Direct Bilirubin Not Reportable Neonat Indirect Bili Not Reportable AST 25 ALT 30 Alkaline Phosphatase 49 Total Protein 7.0 Albumin 4.0 Lipase 66.6 Beta HCG, Quant 994417.00 H Total Beta HCG POSITIVE Urine Color YELLOW Urine Appearance SLIGHTLY-CLOUDY Urine pH 6.0 Ur Specific [place] 1.017 Urine Protein NEGATIVE Urine Glucose (UA) NEGATIVE Urine Ketones NEGATIVE Urine Blood NEGATIVE Urine Nitrite NEGATIVE Urine Bilirubin NEGATIVE Urine Urobilinogen NEGATIVE Ur Leukocyte Esterase SMALL H Urine WBC (Auto) 7 Urine RBC (Auto) 3 Urine Bacteria (Auto) TRACE Squamous Epi Cells Auto 17 Urine Mucus (Auto) FEW Urine Ascorbic Acid 20 H - Diagnostic Test Radiology reviewed: Reports reviewed Discharge - Discharge Clinical Impression: Flank pain UTI (urinary tract infection) Qualifiers: Urinary tract infection type: site unspecified Hematuria presence: without hematuria Qualified Code(s): N39.0 - Urinary tract infection, site not specified Hydronephrosis Qualifiers: Hydronephrosis type: unspecified Qualified Code(s): N13.30 - Unspecified hydronephrosis Condition: Stable Disposition: HOME, SELF-CARE Instructions: Cephalexin ([facility]), Urinary Tract Infection ([facility]) Additional Instructions: Return immediately for any new or worsening symptoms: Fever, worsening pain, vomiting, difficulty urinating, new or concerning symptoms Followup with your primary care provider, call tomorrow to make a followup appointment Follow-up with your [facility] for recheck, call tomorrow to make a follow-up appointment Prescriptions: Cephalexin Monohydrate [Keflex 500 mg Capsule] 500 mg PO BID 7 Days #14 capsule Referrals: NESHA GALEANO CNM [Primary Care Provider] - Follow up in 3-5 days
[2019-06-13 14:11] LABS: APPEARANCE,URINE SLIGHTLY-CLOUDY; BILIRUBIN,URINE NEGATIVE (NEGATIVE); COLOR,URINE YELLOW; GLUCOSE, URINE NEGATIVE (NEGATIVE); KETONES,URINE NEGATIVE (NEGATIVE); LEUKOCYTE ESTERASE,URINE SMALL (NEGATIVE); NITRITE,URINE NEGATIVE (NEGATIVE); PROTEIN,URINE NEGATIVE (NEGATIVE); URINE SPECIFIC GRAVITY 1.017; UROBILINOGEN,URINE NEGATIVE mg/dL (<2.0)
[2019-06-13 14:21] LABS: ABSOLUTE LYMPHOCYTES (AUTO) 1.6 10^3/uL (0.5-4.7); ABSOLUTE MONOCYTES (AUTO) 0.7 10^3/uL (0.1-1.4); ABSOLUTE NEUT (AUTO) 7.7 10^3/uL (1.7-8.2); BASOPHILS % (AUTO) 0.4 % (0-2); EOSINOPHILS % (AUTO) 0.3 % (0-6); HEMATOCRIT 40.5 % (36.0-47.0); HEMOGLOBIN 13.7 g/dL (12.0-15.5); LYMPHOCYTES % (AUTO) 15.5 % (13-45); MEAN CORPUSCULAR HEMOGLOBIN 28.2 pg (27.0-33.4); MEAN CORPUSCULAR HGB CONC 33.9 g/dL (32.0-36.0); MEAN CORPUSCULAR VOLUME 83 fl (80-97); MONOCYTES % (AUTO) 7.1 % (3-13); PLATELET COUNT 280 10^3/uL (150-450); RED BLOOD COUNT 4.88 10^6/uL (3.72-5.28); RED CELL DISTRIBUTION WIDTH 14.2 % (11.5-14.0); SEGMENTED NEUTROPHILS % (AUTO) 76.7 % (42-78); TOTAL CELLS COUNTED % (AUTO) 100 %; WHITE BLOOD COUNT 10.1 10^3/uL (4.0-10.5)
[2019-06-13 15:10] LABS: ALKALINE PHOSPHATASE 49 U/L (38-126); ANION GAP 9 (5-19); ASPARTATE AMINO TRANSFERASE 25 U/L (14-36); BILIRUBIN,TOTAL 0.3 mg/dL (0.2-1.3); BLOOD UREA NITROGEN 8 mg/dL (7-20); CALCIUM 9.5 mg/dL (8.4-10.2); CARBON DIOXIDE 24 mmol/L (22-30); CHLORIDE 101 mmol/L (98-107); GLUCOSE 93 mg/dL (75-110)
--- NOTE | 2019-06-13 15:39 | RADIOLOGY REPORT (SQ) ---
EXAM DESCRIPTION: U/S OB TRANSVAGINAL W/O DOP IMAGES COMPLETED DATE/TIME: 06/13/2019 3:14 pm REASON FOR STUDY: pelvic pain, r lower back pain COMPARISON: None. TECHNIQUE: Transabdominal static and realtime grayscale images acquired of the pelvis. Additional se lected spectral and color Doppler images recorded. All images stored on PACs. bHCG: Not available. CLINICAL DATES: 10 weeks 5 days LIMITATIONS: None. FINDINGS: FETUS: Single Living intrauterine . ULTRASOUND EGA: 9 weeks 1 day ULTRASOUND JED: 01/15/2020 EFW: Not applicable less than 20 weeks. CRL: 2.4 cm FHR: 178 beats per minute. SURVEY: No visualized anomalies. AMNIOTIC FLUID: Adequate amount. PLACENTA: Not yet developed due to early gestation. SUBCHORIONIC BLEED: No. SIZE OF BLEED: Not applicable. UTERUS: No masses. No anomalies. CERVICAL LENGTH: 2.4 cm. Closed. RIGHT ADNEXA: Normal ovary with normal vascular flow. No adnexal free fluid. No adnexal masses. LEFT ADNEXA: Normal ovary with normal vascular flow. No adnexal free fluid. No adnexal masses. FREE FLUID: None. OTHER: No other significant finding. IMPRESSION: LIVING INTRAUTERINE . EGA 9 weeks 1 day. Trimester of : First trimester - 0 to 13 weeks. TECHNICAL DOCUMENTATION: JOB ID: [id number] 2010 [employer]- All Rights Reserved Reading location - IP/workstation name: [email or web address]
--- NOTE | 2019-06-13 15:56 | RADIOLOGY REPORT (SQ) ---
EXAM DESCRIPTION: U/S RETROPERITON (RENAL/AORTA) IMAGES COMPLETED DATE/TIME: 06/13/2019 3:14 pm REASON FOR STUDY: R flank pain COMPARISON: None. TECHNIQUE: Dynamic and static grayscale images acquired of the kidneys and bladder and recorded on P ACS. Additional selected color Doppler and spectral images recorded. LIMITATIONS: None. FINDINGS: RIGHT KIDNEY: Normal size. Normal echogenicity. No solid or suspicious masses. Ana l pelvis measures 2.3 cm. This is much higher than expected for 9 weeks gestation. No calcification s. LEFT KIDNEY: Normal size. Normal echogenicity. No solid or suspicious masses. No hydronephrosi s. No calcifications. BLADDER: No masses. OTHER FINDINGS: No other significant finding. IMPRESSION: Right hydronephrosis without visualized calculi. COMMENT: The degree of renal pelvocalyceal dilation is correlated with the patient's current stage o f . TECHNICAL DOCUMENTATION: JOB ID: [id number] 2010 [employer]- All Rights Reserved Reading location - IP/workstation name: [email or web address]
[2019-06-13] MEDS ORDERED: CEPHALEXIN 500 MG CAPSULE PO ONE (16:29)
[2019-06-13 16:58] VITALS: BP 137/87
== END 2019-06-13 16:50 | disposition home or self-care (01) ==
LOC: ER 13:16
DX: O23.41 Unspecified infection of urinary tract in pregnancy, first trimester (principal); N13.30 Unspecified hydronephrosis; R10.9 Unspecified abdominal pain; R19.7 Diarrhea, unspecified; O21.9 Vomiting of pregnancy, unspecified; Z3A.01 Less than 8 weeks gestation of pregnancy
CPT/HCPCS: 99284; 96361; 96374; 36415; 87086; 84702; 83690; 85025; 80053; 81001; 76817; 76770; J2765; J7030

== ENCOUNTER 2019-10-14 20:50 | Emergency (ER) | payer OTHER, MEDICAID ==
[2019-10-14 21:16] VITALS: BP 136/83
[2019-10-14] MEDS ORDERED: ACETAMINOPHEN 325 MG TABLET PO ONE (21:51)
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
== END 2019-10-14 22:41 | disposition home or self-care (01) ==
LOC: ER 20:50
DX: O26.92 Pregnancy related conditions, unspecified, second trimester (principal); M54.5 Low back pain; V49.40XA Driver injured in collision with unspecified motor vehicles in traffic accident, initial encounter
CPT/HCPCS: 99283

== ENCOUNTER 2019-12-26 13:44 | Outpatient (CLI) | payer MEDICAID ==
[2019-12-26] MEDS ORDERED: HYDROXYZINE PAMOATE 50 MG CAPSULE PO ONE (14:14)
[2019-12-26] MEDS ORDERED: HYDROXYZINE PAMOATE 50 MG CAPSULE ONE (14:16)
[2019-12-26 14:39] LABS: APPEARANCE,URINE CLEAR; BILIRUBIN,URINE NEGATIVE (NEGATIVE); COLOR,URINE YELLOW; GLUCOSE, URINE NEGATIVE (NEGATIVE); KETONES,URINE NEGATIVE (NEGATIVE); LEUKOCYTE ESTERASE,URINE TRACE (NEGATIVE); NITRITE,URINE NEGATIVE (NEGATIVE); PROTEIN,URINE NEGATIVE (NEGATIVE); URINE SPECIFIC GRAVITY 1.009; UROBILINOGEN,URINE NEGATIVE mg/dL (<2.0)
[2019-12-26 15:02] LABS: URINE AMPHETAMINES SCREEN NEGATIVE; URINE BARBITURATES SCREEN NEGATIVE; URINE BENZODIAZEPINES SCREEN NEGATIVE; URINE COCAINE SCREEN NEGATIVE; URINE MARIJUANA (THC) SCREEN NEGATIVE; URINE METHADONE SCREEN NEGATIVE; URINE PHENCYCLIDINE SCREEN NEGATIVE
--- NOTE | 2019-12-26 16:16 | Non Stress Test Report ---
Non Stress Test Datetime Report Generated by CPN: 12/26/2019 16:15 DEMOGRAPHIC Test Number: 1 EGA NST: 37.1 INDICATION Indication for Study (NST) Other: LC VITAL SIGNS Temperature - NST: 98.8 Pulse - NST: 95 RESP - NST: 16 NBPSYS NST: 119 NBPDIA NST: 72 MONITORING Monitor Explained: Monitor Explained; Test Explained; Patient Verbalized Understanding Time on Monitor: 12/26/2019 14:04 Time off Monitor: 12/26/2019 14:54 NST Duration: 50 NST INTERVENTIONS NST Interventions: PO Hydration Physician Notified NST: N. Nichols, CNM BABY A: [id number] BABY A Movement : Present Contraction Frequency : irregular FHR Baseline : 140 Accelerations : 15X15 Decelerations : None Variability : Moderate 6-25bpm NST Review: Meets Criteria for Reactive NST NST Review and Verified By : Shona Phoenix RNC NST Results: Reactive NST REPORT Report Trigger: Send Report
== END 2019-12-26 15:08 | disposition home or self-care (01) ==
LOC: LC 13:44
PROVIDERS: ATTEND Obstetrics & Gynecology
DX: O47.1 False labor at or after 37 completed weeks of gestation (principal); Z3A.37 37 weeks gestation of pregnancy
CPT/HCPCS: 59025; 81005; 80307; 84112; J3490

== ENCOUNTER 2020-01-11 12:46 | Inpatient (IN) | payer MEDICAID ==
[2020-01-11] MEDS ORDERED: RINGERS SOLUTION,LACTATED 1,000 ML IV PRN (13:09)
[2020-01-11] MEDS ORDERED: RINGERS SOLUTION,LACTATED 1,000 ML IV ONE (13:09)
[2020-01-11 13:17] LABS: APPEARANCE,URINE CLEAR; BILIRUBIN,URINE NEGATIVE (NEGATIVE); COLOR,URINE STRAW; GLUCOSE, URINE NEGATIVE (NEGATIVE); KETONES,URINE NEGATIVE (NEGATIVE); LEUKOCYTE ESTERASE,URINE NEGATIVE (NEGATIVE); NITRITE,URINE NEGATIVE (NEGATIVE); PROTEIN,URINE NEGATIVE (NEGATIVE); URINE SPECIFIC GRAVITY 1.004; UROBILINOGEN,URINE NEGATIVE mg/dL (<2.0)
--- NOTE | 2020-01-11 13:19 | Admission Physical ---
Datetime Report Generated by CPN: 01/11/2020 13:19 CURRENT ADMISSION Hx Assessment: The History has been Reviewed and is Current Chief Complaint: Uterine Contractions; Suspected Ruptured Membranes Indication for Induction: Not Applicable Admit Impression : Term, Intrauterine ; Active Labor Admit Plan: Admit to Unit ALLERGIES Medication Allergies: No Known Allergies (12/26/2019) OBSTETRICAL HISTORY EDC: 01/15/2020 00:00 : 2 Para: 1 Term: 1 : 0 SAB: 0 IAB: 0 Ectopic: 0 Livin Cesareans: 0 VBACs: 0 Multiple Births: 0 PHYSICAL EXAM General: Normal Heart: Normal Lungs: Normal Abdomen: Normal Genitourinary Exam: Normal Pelvic Type: Adequate Physical Exam Comments: proven to 6lbs 6 oz Vital Signs: Reviewed Details Vital Signs: mild range-normal VAGINAL EXAM Contraction Comments: q6 FETUS A EGA: 39.3 Monitoring: External US Decelerations: None Presentation: Vertex Admit Comment: 24yo into L_D with contractions that began after appt this am. Reports contractions are every 10min at this time and posible ROM. Pt is A pos, RI, GBS neg, varicella non-immune. complicated by polyhydramnious. Actin prom pending at this time. Plan is expectant management at this time, augment as needed. Dr. Almaraz is the OB bus monitor today and aware of admission. INFORMED CONSENT Assignment: Malissa Almaraz MD Signature: with User ID: Cosmo : with User ID: Cosmo
[2020-01-11 13:45] LABS: ABSOLUTE EOSINOPHILS # (AUTO) 0.1 10^3/uL (0.0-0.6); ABSOLUTE LYMPHOCYTES (AUTO) 2.4 10^3/uL (0.5-4.7); ABSOLUTE MONOCYTES (AUTO) 0.6 10^3/uL (0.1-1.4); ABSOLUTE NEUT (AUTO) 6.4 10^3/uL (1.7-8.2); BASOPHILS % (AUTO) 0.2 % (0-2); EOSINOPHILS % (AUTO) 0.8 % (0-6); HEMATOCRIT 34.9 % (36.0-47.0); HEMOGLOBIN 11.4 g/dL (12.0-15.5); LYMPHOCYTES % (AUTO) 25.7 % (13-45); MEAN CORPUSCULAR HEMOGLOBIN 24.2 pg (27.0-33.4); MEAN CORPUSCULAR HGB CONC 32.6 g/dL (32.0-36.0); MEAN CORPUSCULAR VOLUME 74 fl (80-97); PLATELET COUNT 289 10^3/uL (150-450); RED BLOOD COUNT 4.71 10^6/uL (3.72-5.28); RED CELL DISTRIBUTION WIDTH 15.8 % (11.5-14.0); SEGMENTED NEUTROPHILS % (AUTO) 67.3 % (42-78); TOTAL CELLS COUNTED % (AUTO) 100 %; WHITE BLOOD COUNT 9.4 10^3/uL (4.0-10.5)
[2020-01-11 13:58] LABS: URINE AMPHETAMINES SCREEN NEGATIVE; URINE BARBITURATES SCREEN NEGATIVE; URINE BENZODIAZEPINES SCREEN NEGATIVE; URINE COCAINE SCREEN NEGATIVE; URINE MARIJUANA (THC) SCREEN NEGATIVE; URINE METHADONE SCREEN NEGATIVE; URINE PHENCYCLIDINE SCREEN NEGATIVE
[2020-01-11] MEDS ORDERED: LIDOCAINE 1% INJ-PF (10 MG/ML) 30 ML SDV ONE (15:36)
[2020-01-11] MEDS ORDERED: OXYTOCIN/0.9 % SODIUM CHLORIDE 30 UNIT/500 ML RTUINJ ONE (15:36)
[2020-01-11] MEDS ORDERED: MISOPROSTOL 0.2 MG TABLET ONE (15:36)
[2020-01-11] MEDS ORDERED: OXYTOCIN 10 UNIT/ML VIAL ONE (15:36)
[2020-01-11] MEDS ORDERED: DIBUCAINE 1% OINTMENT 28 GM TP PRN (16:13)
[2020-01-11] MEDS ORDERED: PROMETHAZINE HCL INJ 25 MG/1 ML VIAL IV PRN (16:13)
[2020-01-11] MEDS ORDERED: NA PHOS,M-B/NA PHOS,DI-BA (ADULT) 133 ML ENEMA PR PRN (16:13)
[2020-01-11] MEDS ORDERED: DIPH/PERTUSS(ACELL)/TETANUS VAC/PF 0.5 ML SYR (>=10YO) IM PRN (16:13)
[2020-01-11] MEDS ORDERED: PROMETHAZINE HCL 25 MG SUPP.RECT PR PRN (16:13)
[2020-01-11] MEDS ORDERED: OXYTOCIN/0.9 % SODIUM CHLORIDE 30 UNIT/500 ML RTUINJ IV PRN (16:13)
[2020-01-11] MEDS ORDERED: GLYCERIN/WITCH HAZEL LEAF 1 EACH MED..WIPE TP PRN (16:13)
[2020-01-11] MEDS ORDERED: BENZOCAINE/MENTHOL AEROSOL SPRAY 56 ML TOP PRN (16:13)
[2020-01-11] MEDS ORDERED: MAGNESIUM HYDROXIDE SUSP 30 ML UDCUP PO PRN (16:13)
[2020-01-11] MEDS ORDERED: PROMETHAZINE HCL 25 MG TABLET PO PRN (16:13)
[2020-01-11] MEDS ORDERED: MEASLES,MUMPS&RUBELLA VACC/PF 0.5 ML VIAL SUBCUT PRN (16:13)
[2020-01-11] MEDS ORDERED: DIPHENHYDRAMINE HCL 25 MG CAPSULE PO PRN (16:13)
[2020-01-11] MEDS ORDERED: IBUPROFEN 800 MG TABLET PO SCH (16:15)
--- NOTE | 2020-01-11 16:19 | L&D Progress Notes ---
PROGRESS NOTES Datetime Report Generated by CPN: 01/11/2020 16:19 PROGRESS NOTE Impression: Normal Progression of Labor Procedures: Artificial ROM; Sterile Vag Exam Plan: Continue Present Management Informed Consent Obtained: Vaginal Delivery; Risks, Benefits and Alternatives Discussed Vital Signs : Reviewed Vital Signs Comments: mild range x1 Comment: S: breathing with contractions, declines epidural at this time O: vss, cervix as stated A: IUP @ 39w3d- laboring, progressing well AROM-moderate amount of clear/bloody fluid P: continue expectant management, anticipate delivery, epidural prn VAGINAL EXAM Contractions: 3-4 LAST VAGINAL EXAM-NURSING Nursing Exam Dilitation: 10.0 Nursing Exam Effacement: 100 Nursing Exam Station: 1 MEMBRANES Membranes: Bulging Amniotic Fluid Color: Clear FETUS A FHR Category: Category II FHR Comments: was cat I then tachycardic- LR bolus, oxygen given, position changes, now appears to be going back to Cat I tracing in the 150s as on admission Presentation: Vertex SIGNATURE SIGNATURE: [id number];[id number];13,[id number] Assignment: Malissa Almaraz MD Signature: with User ID: Cosmo : with User ID: Cosmo
[2020-01-11] MEDS ORDERED: IBUPROFEN 800 MG TABLET ONE (17:02)
--- NOTE | 2020-01-11 17:26 | Delivery Summary ---
Del Sum A-C Datetime Report Generated by CPN: 01/11/2020 17:26 DELIVERY PERSONNEL DELIVERY PERSONNEL: [id number] Delivery Doctor:: Mary Peters CNM Labor and Delivery Nurse:: Jyothi Vincent RNstocking and box shop supervisor Nurse:: DEREK Zapata Nursery Nurse:: Estella Sands RN Nursery Nurse:: Keri Bennett RN Ship Superintendent/OPERATOR TECHNICIAN: Natalie Wan, ST MATERNAL INFORMATION Delivery Anesthesia: None Medications After Delivery: Pitocin 30 Units in 500ml NS/D5W Estimated Blood Loss (ml): 50 Delivery QBL: 50 Maternal Complications: None Provider Comments: pt quickly progressed to c/c/1 with urge to push, began pushing and delivered a viable baby girl. Baby delivered thru nuchal cord x1, vigorous respiratory effort and cry with tactile stimulation and placed on maternal abdomen (terminal meconium noted. Cord allowed to stop pulsating then clamped x2 and cut by FOB (cord blood collected, 3vc noted). Placenta delivered spontaneously intact, vaginal and perineal inspection revealed no lacerations, minimal bleeding, fundus firm @ U-1. Mother and baby remain skin to skin and bonding at this time LABOR SUMMARY EDC: 01/15/2020 00:00 No. Babies in Womb: 1 Attempted: Yes Labor Anesthesia: None LABOR INFORMATION Reason for Induction: Not Applicable Onset of Labor: 01/11/2020 11:00 Complete Dilatation: 01/11/2020 15:37 Oxytocin: N/A Group B Beta Strep: Negative Antibiotics # of Doses: N/A Name of Antibiotic Given: N/A Steroids Given: None Reason Steroids Not Administered: Not Applicable MEMBRANES Membranes Rupture Method: Artificial Rupture of Membranes: 01/11/2020 15:14 Length of Rupture (hr): 0.70 Amniotic Fluid Color: Clear Amniotic Fluid Amount: Moderate Amniotic Fluid Odor: Normal STAGES OF LABOR Stage 1 hr: 4 Stage 1 min: 37 Stage 2 hr: 0 Stage 2 min: 19 Stage 3 hr: 0 Stage 3 min: 5 Total Time in Labor hr: 5 Total Time in Labor min: 1 VAGINAL DELIVERY Episiotomy: None Laceration #1: None Laceration Extension #1: N/A Laceration #2: None Laceration #3: None Laceration Repair: Not Applicable Laceration Repair Note: n/a Sponge Count Correct: Yes CSECTION DELIVERY Primary Indication: N/A Secondary Indication: N/A CSection Incidence: N/A Labor: N/A Elective: N/A CSection Incision: N/A BABY A INFORMATION Infant Delivery Date/Time: 01/11/2020 15:56 Method of Delivery: Vaginal Nurse Controlled Delivery: No Born in Route : No : N/A Forceps: N/A Vacuum Extraction: N/A Shoulder Dystocia : No PRESENTATION/POSITION BABY A Presentation: Cephalic Cephalic Presentation: Vertex Breech Presentation: N/A PLACENTA INFORMATION BABY A Placenta Delivery Time : 01/11/2020 16:01 Placenta Method of Delivery: Spontaneous Placenta Status: Delivered SCORES BABY A Heart Rate 1 min: >100 bpm Resp Effort 1 min: Good Cry Reflex Irritability 1 min: Cough or Sneeze or Pulls Away Muscle Tone 1 min: Active Motion Color 1 min: Blue/Pale SCORE 1 MIN: 8 Heart Rate 5 min: >100 bpm Resp Effort 5 min: Good Cry Reflex Irritability 5 min: Cough or Sneeze or Pulls Away Muscle Tone 5 min: Active Motion Color 5 min: Body [place], Extremities Blue SCORE 5 MIN: 9 INFANT INFORMATION BABY A Gestational Age at Delivery: 39.3 Gestational Status: Full Term- 39- 40.6 Weeks Outcome : Liveborn Condition : Stable Sex: Female IDENTIFICATION BABY A Verification Date/Time: 01/11/2020 17:03 ID Band Number: [id number] Mother's Name Verified: Yes Infant RN Verifying Infant: Kimani Reid RN Additional Verifying Personnel: Shekhar Duarte RN WEIGHT/LENGTH BABY A Infant Birthweight (gm): 3280 Weight (lb): 7 Infant Weight (oz): 4 Length (in): 19.25 Infant Length (cm): 48.90 CORD INFORMATION BABY A No. Cord Vessels: 3 Nuchal Cord : Around Neck x1, Tight Cord Blood Taken: Yes-For Storage (Mom's Blood type +) Infant Suction: Mouth; Nose ASSESSMENT BABY A Skin to Skin: Yes Skin to Skin Time (min): 60 BABY B INFORMATION : N/A SIGNATURES Assignment: Malissa Almaraz MD Signature: with User ID: Cosmo : with User ID: Cosmo
--- NOTE | 2020-01-11 17:26 | Birth Certificate Data ---
Cert Data Datetime Report Generated by CPN: 01/11/2020 17:26 CERTIFICATE DATA Delivery Provider: Mary Peters CNM (12/26/2019 13:59:Eda Manriquez RN) 47a. Care: Yes (12/26/2019 13:59:Jyothi Vincent RN) 47b. Date of First Visit: 06/21/2019 00:00 (12/26/2019 13:59:Jyothi Vincent RN) 47c. Date of Last Visit: 01/11/2020 00:00 (12/26/2019 13:59:Jyothi Vincent RN) 47d. Number of Visits: 12 (12/26/2019 13:59:Jyothi Vincent RN) 48a. Number of Prev Live Births: 1 (12/26/2019 13:59:Nancy Cuba RN) 48b. Now Livin (12/26/2019 13:59:Nancy Cuba RN) 48c. Live Births Now : 0 (12/26/2019 13:59:QS system process) 48d. Date of Last Live : 11/07/2017 00:00 (Annotations: Data stored by Catarina on behalf of user) (12/26/2019 13:59:Nancy Cuba RN) 48e. Losses: 0 (12/26/2019 13:59:Jyothi Vincent RN) RISK FACTORS IN THIS 49a. Diabetes: No (12/26/2019 13:59:Jyothi Vincent RN) 49b. Hypertension: No (12/26/2019 13:59:Jyothi Vincent RN) 49c. Previous Births: 0 (12/26/2019 13:59:Nancy Cuba RN) 49d. Stillborns: No (12/26/2019 13:59:Jyothi Vincent RN) 49d. IUGR: No (12/26/2019 13:59:Jyothi Vincent RN) 49e. Infertility Treatment: No (12/26/2019 13:59:Jyothi Vincent RN) 49f. Previous Cesareans: 0 (12/26/2019 13:59:Nancy Cuba RN) Mother's Height 50b. Height Inches: 60 (12/26/2019 13:58:QS system process) Mother's Weight 51a. Pre- Weight (lbs): 130 (12/26/2019 13:59:Jyothi Vincent RN) 51b. Weight at Delivery (lbs): 156 (12/26/2019 13:58:QS system process) Infections Present/Treated 53a. Gonorrhea: No (12/26/2019 13:59:Jyothi Vincent RN) Results this Hospital Visit : Negative (12/26/2019 13:59:Jyothi Vincent RN) 53b. Syphilis: No (12/26/2019 13:59:Jyothi Vincent RN) 53c. Chlamydia: No (12/26/2019 13:59:Jyothi Vincent RN) Results this Hospital Visit: Negative (12/26/2019 13:59:Jyothi Vincent RN) 53d. Hepatitis B: No (12/26/2019 13:59:Jyothi Vincent RN) Results this Hospital Visit: Negative (12/26/2019 13:59:Jyothi Vincent RN) 53e. Hepatitis C: Unknown (12/26/2019 13:59:Jyothi Vincent RN) 53h. Mother Tested for HBsAG: Yes (12/26/2019 13:59:Jyothi Vincent RN) 53i. Date Tested: 06/21/2019 00:00 (12/26/2019 13:59:Jyothi Vincent RN) 53j. Test Result: Negative (12/26/2019 13:59:Jyothi Vincent RN) Obstetric Procedures 54a, b, c. Obstetric Procedures: Ultrasound; NST (12/26/2019 13:59:Jyothi Vincent RN) Cigarette Smoking Cigarette Smoking: Never Smoker. [id number] (12/26/2019 13:59:Jyothi Vincent RN) 55a. 3 Months Before Preg - Ci (12/26/2019 13:59:Jyothi Vincent RN) 55a. Packs: 0 (12/26/2019 13:59:Jyothi Vincent RN) 55b. 1st Trimester of Preg- Ci (12/26/2019 13:59:Jyothi Vincent RN) 55b. Packs: 0 (12/26/2019 13:59:Jyothi Vincent RN) 55c. 2nd Trimester of Preg- Ci (12/26/2019 13:59:Jyothi Vincent RN) 55c. Packs: 0 (12/26/2019 13:59:Jyothi Vincent RN) 55d. 3rd Trimester of Preg- Ci (12/26/2019 13:59:Jyothi Vincent RN) 55d. Packs: 0 (12/26/2019 13:59:Jyothi Vincent RN) Onset of Labor 56a. PROM >12 Hrs: 0.70 (01/11/2020 13:32:QS system process) 56b. Precipitous Labor <3 Hrs: 5 (12/26/2019 13:59:QS system process) 56c. Prolonged Labor > 20 Hrs: 5 (12/26/2019 13:59:QS system process) 57a. Induction of Labor: N/A (12/26/2019 13:59:Jyothi Vincent RN) 57c. Non-Vertex Presentation A: Vertex (12/26/2019 13:59:Eda Manriquez RN) 57d. Steroids - Lung Mat: None (12/26/2019 13:59:Eda Manriquez RN) 57d. Steroids - Lung Mat: Not Applicable (12/26/2019 13:59:Eda Manriquez RN) 57g. Moderate/Heavy Meconium: Clear (01/11/2020 15:14:Jyothi Vincent RN) 57h. Intolerance of Labor: N/A (12/26/2019 13:59:Jyothi Vincent RN) : N/A (12/26/2019 13:59:Jyothi Vincent RN) 57i. Epidural/Spinal Anesthesia: None (12/26/2019 13:59:Eda Manriquez RN) Method of Delivery 58a. Forceps - Unsuccessful A: N/A (12/26/2019 13:59:Eda Manriquez RN) 58b. Vacuum - Unsuccessful A: N/A (12/26/2019 13:59:Eda Manriquez RN) 58c. Presentation at 58c. Presentation at - A : Vertex (12/26/2019 13:59:Eda Manriquez RN) 58c. Presentation at - A : N/A (12/26/2019 13:59:Eda Manriquez RN) 58c. Presentation at - A : Cephalic (01/11/2020 12:55:Jyothi Vincent RN) Final Route and Method of Del 58d. Baby A Route/Delivery: Vaginal (01/11/2020 15:57:Eda Manriquez RN) 58e. Trial of Labor Attempted: Yes (12/26/2019 13:59:Mary Peters CNM) 58e. Trial of Labor Attempted A: N/A (12/26/2019 13:59:Eda Manriquez RN) 58e. Trial of Labor Attempted B: N/A (12/26/2019 13:59:Eda Manriquez RN) Maternal Morbidity 59b. 3rd or 4th Degree Lacs: None (12/26/2019 13:59:Mary Peters, CNM) Birthweight Baby A: 3280 (12/26/2019 13:59:Estella Sands RN) 60a. Pounds : 7 (12/26/2019 13:59:QS system process) 60b. Ounces: 4 (12/26/2019 13:59:QS system process) 61. GA at Delivery Baby A: 39.3 (12/26/2019 13:59:Eda Manriquez RN) : Full Term- 39- 40.6 Weeks (12/26/2019 13:59:QS system process) 62a. 5 Minute Baby A: 9 (12/26/2019 13:59:QS system process)
[2020-01-11] MEDS: DOCUSATE SODIUM 100 MG CAPSULE PO SCH (20:03)
[2020-01-11] MEDS: FERROUS SULFATE 325 MG TABLET PO SCH (20:03)
[2020-01-11] MEDS: FAMOTIDINE 20 MG TABLET PO SCH (21:02)
[2020-01-12] MEDS: IBUPROFEN 800 MG TABLET PO SCH ×3 (01:03→17:16)
[2020-01-12 07:04] LABS: HEMATOCRIT 27.7 % (36.0-47.0); MEAN CORPUSCULAR HEMOGLOBIN 24.5 pg (27.0-33.4); MEAN CORPUSCULAR HGB CONC 32.8 g/dL (32.0-36.0); MEAN CORPUSCULAR VOLUME 75 fl (80-97); PLATELET COUNT 219 10^3/uL (150-450); RED BLOOD COUNT 3.71 10^6/uL (3.72-5.28); RED CELL DISTRIBUTION WIDTH 15.7 % (11.5-14.0); WHITE BLOOD COUNT 12.2 10^3/uL (4.0-10.5)
[2020-01-12 07:07] LABS: HEMOGLOBIN 9.1 g/dL (12.0-15.5)
[2020-01-12] MEDS: ACETAMINOPHEN 325 MG TABLET PO PRN ×2 (08:28→22:29)
[2020-01-12] MEDS: FERROUS SULFATE 325 MG TABLET PO SCH ×2 (10:03→17:15)
[2020-01-12] MEDS: PRENATAL VITAMIN W DHA CAPSULE PO SCH (10:03)
[2020-01-12] MEDS: DOCUSATE SODIUM 100 MG CAPSULE PO SCH ×2 (10:03→17:15)
[2020-01-12] MEDS: FAMOTIDINE 20 MG TABLET PO SCH ×2 (10:03→22:09)
[2020-01-12] MEDS: SENNOSIDES/DOCUSATE 8.6-50 MG 1 EACH TABLET PO SCH (10:03)
--- NOTE | 2020-01-12 10:41 | PDOC PROGRESS REPORT ---
Subjective-OB Progress Note for:: 01/12/20 Physical Exam (OB) Vital Signs: Temp Pulse Resp BP Pulse Ox 98.0 F 86 16 113/83 99 01/12/20 09:53 01/12/20 07:58 01/12/20 07:58 01/12/20 07:58 01/12/20 07:58 Intake & Output 01/11/20 01/12/20 01/13/20 06:59 06:59 06:59 Intake Total 2650 Balance 2650 Weight 72.575 kg - PIH/Pre-Eclampsia Clonus: Negative Headache: Absent Epigastric Pain: No Visual Changes: No - Maternal Morbidity 59. Maternal Morbidity (serious complications experinced by the mother associated with labor and delivery: None of the above - Lochia Lochia Amount: Scant < 10 ml Lochia Color: Rubra/Red - Abdomen Description: Soft Hernia Present: No Bowel Sounds: Normoactive Flatus Presence: Present Stool: Yes Fundal Description: Firm Fundal Height: u/u - u/2 Objective-Diagnostic Laboratory: 01/12/20 06:22 01/11/20 01/11/20 01/11/20 12:53 13:27 13:27 WBC 9.4 RBC 4.71 Hgb 11.4 L Hct 34.9 L MCV 74 L MCH 24.2 L MCHC 32.6 RDW 15.8 H Plt Count 289 Seg Neutrophils % 67.3 Urine Color STRAW Urine Appearance CLEAR Urine pH 6.0 Ur Specific [place] 1.004 Urine Protein NEGATIVE Urine Glucose (UA) NEGATIVE Urine Ketones NEGATIVE Urine Blood MODERATE H Urine Nitrite NEGATIVE Ur Leukocyte Esterase NEGATIVE Blood Type A POSITIVE Antibody Screen NEGATIVE 01/12/20 06:22 WBC 12.2 H RBC 3.71 L Hgb 9.1 L D Hct 27.7 L MCV 75 L MCH 24.5 L MCHC 32.8 RDW 15.7 H Plt Count 219 Seg Neutrophils % Urine Color Urine Appearance Urine pH Ur Specific [place] Urine Protein Urine Glucose (UA) Urine Ketones Urine Blood Urine Nitrite Ur Leukocyte Esterase Blood Type Antibody Screen Assessment and Plan(PN) - Time Spent with Patient Time with patient: Less than 15 minutes Medications reviewed and adjusted accordingly: Yes - Disposition Anticipated Discharge Disposition: Home, Self Care Anticipated Discharge Timeframe: within 36 hours
[2020-01-13] MEDS: IBUPROFEN 800 MG TABLET PO SCH ×2 (02:34→10:19)
[2020-01-13 08:43] VITALS: BP 109/64
--- NOTE | 2020-01-13 09:28 | PDOC PROGRESS REPORT ---
Subjective-OB Progress Note for:: 01/13/20 Subjective: Doing well, ready to go home, no c/o, Physical Exam (OB) Vital Signs: Temp Pulse Resp BP Pulse Ox 98.2 F 83 22 H 109/64 100 01/13/20 08:00 01/13/20 08:00 01/13/20 08:00 01/13/20 08:00 01/13/20 08:00 Intake & Output 01/12/20 01/13/20 01/14/20 06:59 06:59 06:59 Intake Total 2650 600 Output Total 2 Balance 2650 598 Weight 72.575 kg - PIH/Pre-Eclampsia DTR's: 1 + Clonus: Negative Headache: Absent Epigastric Pain: No Visual Changes: No - Maternal Morbidity 59. Maternal Morbidity (serious complications experinced by the mother associated with labor and delivery: None of the above - Lochia Lochia Amount: Scant < 10 ml Lochia Color: Rubra/Red - Abdomen Description: Firm, Soft Hernia Present: No Fundal Description: Midline Fundal Height: u/u - u/2 Objective-Diagnostic Laboratory: 01/12/20 06:22 Assessment and Plan(PN) - Assessment and Plan (1) Anemia, Is this a current diagnosis for this admission?: Yes (2) Vaginal delivery Is this a current diagnosis for this admission?: Yes - Time Spent with Patient Time with patient: Less than 15 minutes Medications reviewed and adjusted accordingly: Yes - Disposition Anticipated Discharge Disposition: Home, Self Care Anticipated Discharge Timeframe: within 24 hours
--- NOTE | 2020-01-13 09:33 | PDOC DISCHARGE SUMMARY ---
Impression - Admit/DC Date/PCP Admission Date/Primary Care Provider: 01/11/20 13:01 ROSA BONE MD Discharge Date: 01/13/20 - Discharge Diagnosis (1) Anemia, Is this a current diagnosis for this admission?: Yes (2) Vaginal delivery Is this a current diagnosis for this admission?: Yes - Additional Information Resuscitation Status: Full Code Discharge Diet: As Tolerated, Regular Discharge Activity: Activity As Tolerated, Pelvic Rest Referrals: ROSA BONE MD [Primary Care Provider] - (rtc 4 weeks) Home Medications: Pnv No.95/Ferrous Fum/Folic AC [ Vitamins Tablet] 1 tab PO DAILY 09/23/17 HPI Gestational Age: 39.3 Reason(s) for Admission: Onset of Labor Procedures: NST, Ultrasound Intrapartum Procedure(s): Spontaneous Vaginal Delivery Hospital Course 59. Maternal Morbidity (serious complications experinced by the mother associated with labor and delivery: None of the above Results Laboratory Results: WBC 12.2 10^3/uL (4.0-10.5) H 01/12/20 06:22 RBC 3.71 10^6/uL (3.72-5.28) L 01/12/20 06:22 Hgb 9.1 g/dL (12.0-15.5) L D 01/12/20 06:22 Hct 27.7 % (36.0-47.0) L 01/12/20 06:22 MCV 75 fl (80-97) L 01/12/20 06:22 MCH 24.5 pg (27.0-33.4) L 01/12/20 06:22 MCHC 32.8 g/dL (32.0-36.0) 01/12/20 06:22 RDW 15.7 % (11.5-14.0) H 01/12/20 06:22 Plt Count 219 10^3/uL (150-450) 01/12/20 06:22 Lymph % (Auto) 25.7 % (13-45) 01/11/20 13:27 [place] % (Auto) 6.0 % (3-13) 01/11/20 13:27 Eos % (Auto) 0.8 % (0-6) 01/11/20 13:27 Baso % (Auto) 0.2 % (0-2) 01/11/20 13:27 Absolute Neuts (auto) 6.4 10^3/uL (1.7-8.2) 01/11/20 13:27 Absolute Lymphs (auto) 2.4 10^3/uL (0.5-4.7) 01/11/20 13:27 Absolute Monos (auto) 0.6 10^3/uL (0.1-1.4) 01/11/20 13:27 Absolute Eos (auto) 0.1 10^3/uL (0.0-0.6) 01/11/20 13:27 Absolute Basos (auto) 0.0 10^3/uL (0.0-0.2) 01/11/20 13:27 Seg Neutrophils % 67.3 % (42-78) 01/11/20 13:27 Urine Color STRAW 01/11/20 12:53 Urine Appearance CLEAR 01/11/20 12:53 Urine pH 6.0 (5.0-9.0) 01/11/20 12:53 Ur Specific [place] 1.004 01/11/20 12:53 Urine Protein NEGATIVE mg/dL (NEGATIVE) 01/11/20 12:53 Urine Glucose (UA) NEGATIVE mg/dL (NEGATIVE) 01/11/20 12:53 Urine Ketones NEGATIVE mg/dL (NEGATIVE) 01/11/20 12:53 Urine Blood MODERATE (NEGATIVE) H 01/11/20 12:53 Urine Nitrite NEGATIVE (NEGATIVE) 01/11/20 12:53 Urine Bilirubin NEGATIVE (NEGATIVE) 01/11/20 12:53 Urine Urobilinogen NEGATIVE mg/dL (<2.0) 01/11/20 12:53 Ur Leukocyte Esterase NEGATIVE (NEGATIVE) 01/11/20 12:53 Urine Ascorbic Acid NEGATIVE (NEGATIVE) 01/11/20 12:53 Membranes Rupture NEGATIVE (NEGATIVE) 01/11/20 12:53 Urine Opiates Screen Cancelled 01/11/20 12:53 Urine Opiates Screen Cancelled 01/11/20 12:53 Urine Opiates Screen NEGATIVE 01/11/20 12:53 Urine Methadone Screen Cancelled 01/11/20 12:53 Urine Methadone Screen Cancelled 01/11/20 12:53 Urine Methadone Screen NEGATIVE 01/11/20 12:53 Ur Barbiturates Screen Cancelled 01/11/20 12:53 Ur Barbiturates Screen Cancelled 01/11/20 12:53 Ur Barbiturates Screen NEGATIVE 01/11/20 12:53 Ur Phencyclidine Scrn Cancelled 01/11/20 12:53 Ur Phencyclidine Scrn Cancelled 01/11/20 12:53 Ur Phencyclidine Scrn NEGATIVE 01/11/20 12:53 Ur Amphetamines Screen Cancelled 01/11/20 12:53 Ur Amphetamines Screen Cancelled 01/11/20 12:53 Ur Amphetamines Screen NEGATIVE 01/11/20 12:53 U Benzodiazepines Scrn Cancelled 01/11/20 12:53 U Benzodiazepines Scrn Cancelled 01/11/20 12:53 U Benzodiazepines Scrn NEGATIVE 01/11/20 12:53 Urine Cocaine Screen Cancelled 01/11/20 12:53 Urine Cocaine Screen Cancelled 01/11/20 12:53 Urine Cocaine Screen NEGATIVE 01/11/20 12:53 U Marijuana (THC) Screen Cancelled 01/11/20 12:53 U Marijuana (THC) Screen Cancelled 01/11/20 12:53 U Marijuana (THC) Screen NEGATIVE 01/11/20 12:53 RPR NONREACTIVE (NONREACTIVE) 01/11/20 13:27 Blood Type A POSITIVE 01/11/20 13:27 Antibody Screen NEGATIVE 01/11/20 13:27 Plan Health Concerns: routine Plan of Treatment: discharge home, continue vitamins, rev S&S to report Goals: no complications Time Spent: Less than 30 Minutes
[2020-01-13] MEDS: FAMOTIDINE 20 MG TABLET PO SCH (10:18)
[2020-01-13] MEDS: SENNOSIDES/DOCUSATE 8.6-50 MG 1 EACH TABLET PO SCH (10:18)
[2020-01-13] MEDS: FERROUS SULFATE 325 MG TABLET PO SCH (10:18)
[2020-01-13] MEDS: DOCUSATE SODIUM 100 MG CAPSULE PO SCH (10:18)
[2020-01-13] MEDS: PRENATAL VITAMIN W DHA CAPSULE PO SCH (10:19)
== END 2020-01-13 13:00 | disposition home or self-care (01) | DRG 807 ==
LOC: LC 12:46 → LR 13:01 → 2S 18:10
PROVIDERS: ADMIT Obstetrics & Gynecology; ATTEND Obstetrics & Gynecology
PROC: 10E0XZZ Delivery of Products of Conception, External Approach (ICD-10-PCS; principal; 2020-01-11)
PROC: 10907ZC Drainage of Amniotic Fluid, Therapeutic from Products of Conception, Via Natural or Artificial Opening (ICD-10-PCS; 2020-01-11)
DX: O40.3XX0 Polyhydramnios, third trimester, not applicable or unspecified (principal); Z37.0 Single live birth; O69.1XX0 Labor and delivery complicated by cord around neck, with compression, not applicable or unspecified; O77.0 Labor and delivery complicated by meconium in amniotic fluid; O99.02 Anemia complicating childbirth; Z3A.39 39 weeks gestation of pregnancy
CPT/HCPCS: 36415; 80307; 81005; 84112; 85025; 85027; 86592; 86850; 86900; 86901; J2590; J3490